=== PATIENT | female | born 1930 | race Caucasian/White ===

== ENCOUNTER 2017-01-20 20:34 | Emergency (ER) | payer MEDICARE, BC ==
[~2017-01-20] VITALS: Ht 152.4 cm; Wt 74.5 kg
[~2017-01-20 20:34] MED LIST: ASPI325T6 PO; CALCIUM WITH D1 CTB PO; ELDERBERRY200 MG PO; FOSAMAX 10M10 MG/TAB PO; LOPRESSOR 225 MG/TAB PO; MULTIPLE VITAMI1 CAP PO; NITROSTAT0.4 MG/TAB SL; OMEGA-31000 MG PO; PRILOTC PO; THERA TEARS OU; THERATEARS 15 M15 ML OP; VIT D; VITAMIN D1000 IU PO; ZOCOR 20MG20 MG PO
[2017-01-20 20:36] VITALS: TEMP 98.1
[2017-01-20] MEDS ORDERED: PEPCID 20MG TAB20 MG PO (20:52)
[2017-01-20] MEDS ORDERED: CALCIUM 600/VIT1 CAP PO (20:55)
[2017-01-20 21:35] LABS: INR 1.1 (0.8-3.0); PROTHROMBIN TIME 12.3 SECONDS (9.7-12.8)
[2017-01-20 21:37] LABS: PARTIAL THROMBOPLASTIN TIME 27.3 SECONDS (26.0-37.0)
[2017-01-20 21:45] LABS: BASO # 0.1 (0.0-0.2); BASO % 0.7 % (0.0-2.0); EOS # 0.2 (0.0-0.7); EOS % 2.7 % (0-4.0); GRAN # 5.2 (1.4-6.5); GRAN % 72.9 % (42.2-75.2); HEMOGLOBIN 14.7 g/dl (12.5-16.0); LYMPH # 1.1 (1.2-3.4); LYMPH % 15.8 % (20.0-51.0); MEAN CELL VOLUME 93 fl (80.0-100.0); MEAN CORPUSCULAR HEMOGLOBIN 32 pg (27.0-31.0); MEAN CORPUSCULAR HGB CONC 35 g/dl (33.0-37.0); MONO # 0.5 (0.1-0.6); MONO % 7.6 % (1.7-9.3); PLATELET COUNT 246 K/mm3 (130-400); RED BLOOD COUNT 4.54 M/mm3 (4.10-5.30); REDCELL DISTRIBUTION WIDTH-CV 15.3 % (11.5-14.5); WHITE BLOOD COUNT 7.1 K/mm3 (4.8-10.8)
[2017-01-20 21:48] LABS: ADJUSTED CALCIUM 8.7 mg/dL (8.4-10.2); ALANINE AMINOTRANSFERASE 37 U/L (9-52); ALBUMIN 3.9 gm/dL (3.5-5.0); ALKALINE PHOSPHATASE 57 U/L (50-136); ANION GAP 12 mmol/L (7-16); BILIRUBIN,TOTAL 0.8 mg/dL (0.0-1.0); BLOOD UREA NITROGEN 15 mg/dL (7-17); CALCIUM 8.6 mg/dL (8.4-10.2); CARBON DIOXIDE 27 mmol/L (22-30); CHLORIDE 99 mmol/L (98-107); CREATININE, serum 0.65 mg/dL (0.52-1.25); GLUCOSE 117 mg/dL (74-106); LIPASE 13 U/L (23-300); POTASSIUM 3.5 mmol/L (3.4-5.0); SODIUM 138 mmol/L (137-145); TOTAL PROTEIN 7.1 gm/dL (6.4-8.2)
[2017-01-20 22:03] LABS: TROPONIN-I < 0.012 ng/mL (0.000-0.034)
[2017-01-21 00:04] VITALS: BP 133/71; PULSE 109
== END 2017-01-21 00:04 | disposition home or self-care (01) ==
LOC: COL.ER 20:34
PROVIDERS: Emergency Medicine
DX: R10.13 Epigastric pain (principal); K21.9 Gastro-esophageal reflux disease without esophagitis; I10 Essential (primary) hypertension; Z87.11 Personal history of peptic ulcer disease; I25.2 Old myocardial infarction
CPT/HCPCS: J2765; J7030

== ENCOUNTER → 2017-06-04 | Outpatient (CLI) | payer MEDICARE, BC ==
[~2017-06-04] MED LIST changes: +CALCIUM 600/VIT1 CAP PO; +PEPCID 20MG TAB20 MG PO
== END ==
LOC: MC.RAD 10:49
DX: Z12.31 Encounter for screening mammogram for malignant neoplasm of breast (principal)

== ENCOUNTER 2017-10-29 14:04 | Inpatient (IN) | payer MEDICARE, BC ==
[~2017-10-29] VITALS: Ht 152.4 cm; Wt 80.9 kg
[2017-10-29 15:05] LABS: BASO # 0.1 (0.0-0.2); BASO % 0.9 % (0.0-2.0); EOS # 0.2 (0.0-0.7); EOS % 1.7 % (0-4.0); GRAN # 5.7 (1.4-6.5); GRAN % 56.3 % (42.2-75.2); HEMATOCRIT 46.1 % (37.0-47.0); HEMOGLOBIN 15.7 g/dl (12.5-16.0); LYMPH # 2.5 (1.2-3.4); LYMPH % 24.5 % (20.0-51.0); MEAN CELL VOLUME 93 fl (80.0-100.0); MEAN CORPUSCULAR HEMOGLOBIN 32 pg (27.0-31.0); MEAN CORPUSCULAR HGB CONC 34 g/dl (33.0-37.0); MEAN PLATELET VOLUME 10.3 fl (7.4-10.4); MONO # 1.7 (0.1-0.6); MONO % 16.3 % (1.7-9.3); PLATELET COUNT 238 K/mm3 (130-400); RED BLOOD COUNT 4.96 M/mm3 (4.10-5.30); REDCELL DISTRIBUTION WIDTH-CV 15.5 % (11.5-14.5)
[2017-10-29 15:15] LABS: ALBUMIN 4.3 gm/dL (3.5-5.0); BILIRUBIN,TOTAL 0.7 mg/dL (0.0-1.0); C-REACTIVE PROTEIN 2.3 mg/dL (0.0-0.9); CALCIUM 9.1 mg/dL (8.4-10.2); CREATININE, serum 0.72 mg/dL (0.52-1.25); POTASSIUM 3.5 mmol/L (3.4-5.0); TOTAL PROTEIN 7.9 gm/dL (6.4-8.2)
[2017-10-29 17:14] LABS: COLLECTION METHOD CLEAN CATCH
[2017-10-29] MEDS ORDERED: VITAMIN D31000 I1 PO (17:24)
[2017-10-29] MEDS ORDERED: CALCIUM CARBON650 M2 PO (17:27)
[2017-10-29 17:32] LABS: MUCOUS Present /lpf; PH 8 (5-8); SQUAMOUS EPITHELIAL None Seen /hpf; URINE APPEARANCE Clear; URINE BACTERIA None Seen /hpf; URINE BILIRUBIN Negative (NEGATIVE); URINE BLOOD Negative (NEGATIVE); URINE COLOR Yellow; URINE GLUCOSE Negative (NEGATIVE); URINE KETONE Negative (NEGATIVE); URINE LEUKOCYTE ESTERASE Negative (NEGATIVE); URINE NITRATE Negative (NEGATIVE); URINE PROTEIN(semi-quant) Negative (NEGATIVE); URINE UROBILINOGEN Negative (NEGATIVE)
[2017-10-29 17:34] LABS: TROPONIN-I < 0.012 ng/mL (0.000-0.034)
[2017-10-29 17:52] LABS: TSH w REFLEX 0.627 uIU/mL (0.465-4.680)
[2017-10-29 20:28] VITALS: BP 142/53; PULSE 116; TEMP 98.8
[2017-10-30 01:28] VITALS: BP 132/67; PULSE 106; TEMP 98.7
[2017-10-30 07:14] VITALS: BP 105/55; PULSE 88; TEMP 99
[2017-10-30 07:29] LABS: HEMATOCRIT 39.6 % (37.0-47.0); MEAN CELL VOLUME 93 fl (80.0-100.0); MEAN CORPUSCULAR HEMOGLOBIN 32 pg (27.0-31.0); MEAN CORPUSCULAR HGB CONC 34 g/dl (33.0-37.0); MEAN PLATELET VOLUME 10.9 fl (7.4-10.4); PLATELET COUNT 220 K/mm3 (130-400); RED BLOOD COUNT 4.25 M/mm3 (4.10-5.30); REDCELL DISTRIBUTION WIDTH-CV 15.6 % (11.5-14.5)
[2017-10-30 07:39] LABS: CALCIUM 7.9 mg/dL (8.4-10.2); CREATININE, serum 0.77 mg/dL (0.52-1.25); MAGNESIUM 1.8 mg/dL (1.6-2.3); PHOSPHOROUS 3.1 mg/dL (2.5-4.5); POTASSIUM 3.2 mmol/L (3.4-5.0)
[2017-10-30 07:40] LABS: HEMOGLOBIN 13.6 g/dl (12.5-16.0)
[2017-10-30 09:23] LABS: BAND 10 % (0-10); LYMPHOCYTE 37 % (20.0-51.0); NEUTROPHILS 37 % (42.0-75.2); PLATELET ESTIMATE NORMAL (NORMAL)
[2017-10-30] MEDS ORDERED: LOPRESSOR 225 MG/TAB PO (11:21)
[2017-10-30] MEDS ORDERED: LEVAQUIN 2250 MG/TAB PO (11:22)
[2017-10-30 11:35] VITALS: BP 129/53; PULSE 85; TEMP 99.4
== END 2017-10-30 14:52 | disposition home or self-care (01) | DRG 202 ==
LOC: COL.ER 14:04 → MEDICAL 16:46 → COL.ER 16:46 → MEDICAL 10-30 14:52
PROVIDERS: Emergency Medicine; Internal Medicine; Physician Assistant
DX: J20.8 Acute bronchitis due to other specified organisms (principal); R65.10 Systemic inflammatory response syndrome (SIRS) of non-infectious origin without acute organ dysfunction; E87.1 Hypo-osmolality and hyponatremia; E86.9 Volume depletion, unspecified; I10 Essential (primary) hypertension; G89.29 Other chronic pain; M54.9 Dorsalgia, unspecified; G60.8 Other hereditary and idiopathic neuropathies; R00.0 Tachycardia, unspecified; E87.6 Hypokalemia
CPT/HCPCS: 99222-AI; 99238; J1956; J3475; J7030; J7050; Q9967